=== PATIENT | female | born 2000 | race Two or more races ===

== ENCOUNTER 2023-10-04 22:27 | Emergency (ER) | payer MEDICAID ==
[~2023-10-04] VITALS: Ht 157.5 cm; Wt 50.0 kg
[2023-10-04 22:37] VITALS: TEMP 98.2
[2023-10-05 01:24] VITALS: BP 146/71; PULSE 66; RESP 16
== END 2023-10-05 02:02 | disposition home or self-care (01) ==
LOC: EMS 22:30
DX: R20.2 Paresthesia of skin (principal)
CPT/HCPCS: 70450; 99284